=== PATIENT | female | born 1950 | race Caucasian/White ===

== ENCOUNTER → 2016-06-17 07:56 | Day surgery (SDC) | payer MEDICARE ==
--- NOTE | 2016-06-10 03:51 | HP ---
HISTORY AND PHYSICAL: DATE OF ADMISSION AND SURGERY: 06/17/16 DATE OF VISIT: 06/07/16 CHIEF COMPLAINT: Blurry vision. HISTORY OF PRESENT ILLNESS: This 66-year-old white female has seen Dr. Rupesh Zuleta and has been diagnosed with bilateral cataracts. She is scheduled at the [facility] for right cataract extraction under local anesthesia with monitored anesthesia care on 06/17/16. The left eye will be done on 07/01/16. PAST MEDICAL HISTORY: The patient is under the care of Dr. Samuel Forbes and Dr. Jesse Delacruz, her cook chief. She has a history of : 1. Hypertension. 2. Bradycardia with pacemaker. 3. Atrial fibrillation. She is on Coumadin. 4. Hiatal hernia with Caldwell's esophagus. 5. She has sleep apnea, on CPAP. 6. Vitamin B12 deficiency. The patient has been experiencing anginal chest pain during the past several weeks. Nitroglycerin is helpful. She saw Dr. Delacruz today in followup and he stated that she does not need any further cardiac testing at this time as she is on adequate dose of metoprolol and amlodipine and he will be seeing her in a month. He thought she was a good candidate for the cataract surgery that was a low risk procedure. She did have a negative Myoview stress test dating back to May 2014, which showed an ejection fraction of 67%. PAST SURGICAL HISTORY: Include: 1. Appendectomy. 2. Hysterectomy. 3. Bilateral tubes and ovaries. 4. She had a cardiac stent placed in 2001. 5. In 2004, she had a coronary artery bypass graft, complication of a sternal infection and the wires were removed from her coronary artery bypass from the chest wall in 2005. CURRENT MEDICATIONS: 1. Amlodipine 10 mg daily. 2. Lisinopril 20 mg b.i.d. 3. Metoprolol ER 100 mg daily. 4. Lipitor 80 mg daily. 5. Clonidine 0.2 mg tablet q.h.s. 6. Prevacid 30 mg daily p.r.n. 7. Albuterol inhaler 2 puffs q.i.d. p.r.n. 8. Hydrochlorothiazide 12.5 mg daily. 9. Vitamin B12 1000 mcg daily. 10. Nitroglycerin 0.4 mg sublingual p.r.n. chest pain, which she has used once in the past 2 weeks. 11. She is also on Coumadin 5 mg as directed. The patient was advised to hold her Coumadin doses 3 days prior to surgery as well as her surgery day. She can restart after her surgery. She was given dates for both of her surgical procedures in terms of holding her Coumadin. ALLERGIES: SULFA and VANCOMYCIN have caused hives. FAMILY HISTORY: Mother - [place] at age 36, diabetes, glaucoma, of kidney failure in her 60s related to diabetes complications. Maternal grandmother - diabetic. Maternal uncle - MIs in his 40s. Maternal aunt - cardiac arrest age 50. Father had dementia and lived to . SOCIAL HISTORY: She is single. She has never used tobacco. Rare to occasional alcohol. REVIEW OF SYSTEMS: She has a bit of a clear runny nose past few days, nonproductive, minor cough. 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 Otherwise, review of systems is negative to detailed questioning. No shortness of breath, palpitations or edema symptoms. She does have chest pain complaints as previously stated. PHYSICAL EXAMINATION GENERAL: This 66-year-old white female is alert, pleasant, and cooperative. VITAL SIGNS: Height 5 feet 3 inches, weight 221 pounds, blood pressure 136/60, pulse 62. HEENT: Eyes: Not examined. Mouth: Tongue in the midline. Pharynx is clear. She has an upper denture full in place. No molars on the bottom jaw. Ears: Normal. NECK: No adenopathy or tenderness. Thyroid benign. BACK: Mild kyphosis. No tenderness noted of the spine or CVA areas. LUNGS: Clear. HEART: Rhythm is regular. Apical pulse 62 beats per minute. She has a widened sternal scar from previous surgery. Pacemaker in her left upper chest. SKIN: Warm, dry. No worrisome lesions noted. ABDOMEN: Obese. Multiple well-healed scars. No evidence of hernia. Active bowel sounds, soft, nontender. No obvious masses or organomegaly. EXTREMITIES: The patient ambulates independently. No assisting aids. No gross deformities, no cyanosis, no edema. IMPRESSION: The patient is medically stable and cleared for her upcoming surgery. As previously stated, Dr. Delacruz saw her today and agrees that she can proceed with her cataract surgery. MISHEL DUARTE NP CC: Dr. Forbes; [facility] Rupesh Zuleta; [facility] * [id number]/[facility] #: [id number] [facility] SYSTEMChula
[~2016-06-17 07:56] MED LIST: Acetaminophen TAB* 325 MG PO PRN; Buffered Lidocaine 1% SYR 3ML* 3 ML/SYR SYRINGE INTRADERM ONE; Cyclopentolate 1% OPTH.SOL* 2 ML BTL ONE; Flurbiprofen 0.03% OPTH.SOL* 2.5 ML BTL ONE; Lidocaine 1% MPF* 2 ML VIAL ONE; Midazolam* 1 MG/ML 2 ML VIAL (2 MG) ONE; Neomycin/Polymy/Dex OPHTH.OIN* 3.5 GM ONE; Phenylephrine 2.5% OPTH.SOL* 2 ML BTL ONE; Povidone Iodine 5% OPTH* 30 ML BTL ONE; Tetracaine 0.5% OPTH.SOL 4 ML* 1 DROP BTL ONE; acetaZOLAMIDE TAB* 250 MG ONE
[2016-06-17 10:03] VITALS: BP 160/79
--- NOTE | 2016-06-18 01:34 | OP ---
DATE OF OPERATION: 06/17/16 - [place] [facility] DATE OF : 46 SURGEON: Rupesh Zuleta MD ANESTHESIOLOGIST: Ariel Owens MD ANESTHESIA: Monitored anesthesia care. PRE-OP DIAGNOSIS: Cataract of the right eye. POST-OP DIAGNOSIS: Cataract of the right eye. OPERATIVE PROCEDURE: Cataract extraction of the right eye. IMPLANTS: SN60WF 21.0 diopter lens to the right eye. COMPLICATIONS: None. DESCRIPTION OF PROCEDURE: The patient was given phenylephrine 2.5% and cyclopentolate 1% eyedrops to the operative eye in the preoperative area. The patient was brought to the operating room where a time-out was taken to identify the correct patient, site, and side of surgery. The patient's right eye was prepped and draped in the usual sterile fashion with 5% Betadine. A second time- out was taken to verify the correct patient, site, and side of surgery, and correct lens selection. A lid speculum was placed to the right eye. A 1-mm paracentesis blade was used to make a clear corneal incision in the superotemporal position. Preservative-free 1% lidocaine was injected into the anterior chamber. DuoVisc was then injected into the anterior chamber. A 2.75-mm keratome blade was used to make a triplanar incision at the inferotemporal position. A cystotome was used to initiate a capsulorrhexis, which was completed with Utrata forceps in a continuous and curvilinear manner. Hydrodissection of the lens was then performed with BSS on a cannula. The lens could be spun in the capsular bag. The phacoemulsification handpiece was then used with a maaior-apj-izypavz technique to remove the nucleus in its entirety with 16.03 CDE. The I/A handpiece was then used to remove the residual cortical lens material. DuoVisc was then injected to inflate the capsular bag. The planned SN60WF 21.0 diopter lens was then injected into the capsular bag. The residual DuoVisc was then removed from the eye with the I/A handpiece. The corneal incisions were then hydrated and no leaks occurred at physiologic pressure around 20 mmHg per palpation. The lid speculum was then removed and drapes removed. Maxitrol ointment was then placed to the surface of the operative eye. An adhesive patch and shield were then placed on the operative eye. The patient was taken to the postoperative area in stable condition. [id number]/[facility] #: [id number] ANGELA
== END | disposition home or self-care (01) ==
LOC: OREAST 07:56
PROVIDERS: ATTEND Student in an Organized Health Care Education/Training Program
DX: H25.11 Age-related nuclear cataract, right eye (principal); I49.5 Sick sinus syndrome; I25.9 Chronic ischemic heart disease, unspecified; I25.810 Atherosclerosis of coronary artery bypass graft(s) without angina pectoris; I10 Essential (primary) hypertension; I25.2 Old myocardial infarction; Z95.5 Presence of coronary angioplasty implant and graft; Z79.01 Long term (current) use of anticoagulants; Z95.0 Presence of cardiac pacemaker; J44.9 Chronic obstructive pulmonary disease, unspecified; Z95.1 Presence of aortocoronary bypass graft
CPT/HCPCS: A9270-GY; J2250; V2632

== ENCOUNTER → 2016-07-01 10:54 | Day surgery (SDC) | payer MEDICARE ==
[~2016-07-01 10:54] MED LIST changes: -Buffered Lidocaine 1% SYR 3ML* 3 ML/SYR SYRINGE INTRADERM ONE; +Buffered Lidocaine 1% SYRIN* 3 ML/SYR SYRINGE INTRADERM ONE; +fentaNYL* 50 MCG/ML 2 ML VIAL (100 MCG VIAL) ONE
[2016-07-01 13:15] VITALS: BP 147/72
--- NOTE | 2016-07-02 06:32 | OP ---
DATE OF OPERATION: 07/01/16 - [place] [facility] DATE OF : 46 SURGEON: Rupesh Zuleta MD ANESTHESIOLOGIST: Vasu Lucero MD ANESTHESIA: Monitored anesthesia care. PRE-OP DIAGNOSIS: Cataract to the left eye. POST-OP DIAGNOSIS: Cataract to the left eye. OPERATIVE PROCEDURE: Cataract extraction of the left eye. IMPLANTS: SN60WF 21.0 diopter lens to the left eye. COMPLICATIONS: None. DESCRIPTION OF PROCEDURE: The patient was given phenylephrine 2.5% and cyclopentolate 1% eye drops to the operative eye in the preoperative area. The patient was brought to the operating room, where a time-out was taken to identify the correct patient, site, and side of surgery. The patient's left eye was prepped and draped in the usual sterile fashion with 5% Betadine. A second time-out was taken to verify the correct patient, site, and side of surgery, and correct lens selection. A lid speculum was placed to the left eye. An 1-mm paracentesis blade was used to make a clear corneal incision in the inferotemporal position. Preservative-free 1% lidocaine was injected into the anterior chamber. DuoVisc was then injected into the anterior chamber. A 2.75 mm keratome blade was used to make a triplanar incision at the superotemporal position. A cystotome was used to initiate a capsulorrhexis, which was completed with Utrata forceps in a continuous and curvilinear manner. Hydrodissection of the lens was then performed with BSS on a cannula. The lens could be spun in the capsular bag. The phacoemulsification handpiece was then used with a hgconh-wph-[id number] technique to remove the nucleus in its entirety with 13.21 CDE. The I/A handpiece was then used to remove the residual cortical lens material. DuoVisc was then injected to inflate the capsular bag. The planned SN60WF 21.0 diopter lens was then injected into the capsular bag. The residual DuoVisc was then removed from the eye with the I/A handpiece. The corneal incisions were then hydrated and no leaks occurred at the physiologic pressure around 20 mmHg per palpation. The lid speculum was then removed and drapes were removed. Maxitrol ointment was then placed to the surface of the operative eye. An adhesive patch and shield were then placed on the operative eye. The patient was taken to the post-operative area in stable condition. [id number]/[facility] #: [id number] ANGELA
== END | disposition home or self-care (01) ==
LOC: OREAST 10:54
PROVIDERS: ATTEND Student in an Organized Health Care Education/Training Program
DX: H25.12 Age-related nuclear cataract, left eye (principal); I25.10 Atherosclerotic heart disease of native coronary artery without angina pectoris; Z79.01 Long term (current) use of anticoagulants; I48.91 Unspecified atrial fibrillation; Z95.5 Presence of coronary angioplasty implant and graft; Z95.1 Presence of aortocoronary bypass graft; Z95.0 Presence of cardiac pacemaker
CPT/HCPCS: J2250; J3010; V2632

== ENCOUNTER 2017-06-10 09:01 | Emergency (ER) | payer MEDICARE ==
[2017-06-10 09:37] LABS: ABS Basophils 0.1 10^3/ul (0-0.2); ABS Eosinophils 0.1 10^3/ul (0-0.6); ABS Lymphocytes 1.7 10^3/ul (1.0-4.8); ABS Monocytes 0.7 10^3/ul (0-0.8); ABS Neutrophils 5.5 10^3/ul (1.5-7.7); ABS Nucleated RBC 0 10^3/ul; Eosinophil % 1.3 % (0-6); Hematocrit 46 % (35-47); Hemoglobin 15.7 g/dl (12.0-16.0); Lymphocyte % 21.1 % (25-47); Mean Corpuscular HGB Conc 34 g/dl (31-36); Mean Corpuscular Hemoglobin 32 pg (27-31); Mean Corpuscular Volume 93 fL (80-97); Mean Platelet Volume 8 um3 (7.4-10.4); Nucleated Red Blood Cells % 0; Platelet Count 220 10^3/ul (150-450); Red Blood Count 4.91 10^6/ul (4.0-5.4); Red Cell Distribution Width 15 % (10.5-15); White Blood Count 8.1 10^3/ul (3.5-10.8)
--- OUTSIDE RECORDS SUMMARY | 2017-06-10 09:41 | XMS REPORT ---
:1950 External Reference #:[id number] Author Organization [facility] Address [address] [place] [address] Phone [phone] Care Team Providers Name Role Phone Mendel Morris MD Care Team Information Coal Pulverizer Operator Unavailable Mendel Morris MD Primary Care Physician Unavailable Payers Type Date Identification Numbers Payment Provider Subscriber Medicare Primary Effective: Policy Number: Medicare - Bswny Maryann Dawson 2016 [id number] [facility] PayID: [id number] [address] [place] [id number] [place] [address] Part B Effective: Policy Number: [employer] Medicare Maryann Souza 2016 [id number] Supplement Samir Group Name: Aarp Medicare Supplement [facility] Care Options PayID: [id number] 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 Cigarette Use Never Smoked Cigarettes ETOH Use Occasionally consumes alcohol 4/wk Exercise Type/Frequency Exercises rarely Walks 3/wk Allergies, Adverse Reactions, Alerts Date Description Reaction Status Severity Comments 08/29/2016 Vancomycin active rash/welts 08/29/2016 Sulfa active rash 08/29/2016 Norvasc active swelling & coughing 08/29/2016 Vasotec active swelling & coughing Medications Medication Date Status Form Strength Qnty SIG Indications Ordering Provider Hydrochlorothiazid 12/20 Active Tablets 25mg 30tab 1 tab by Mendel gatica s mouth every Alexandra castaneda MD Lipitor 08/29 Active Tablets 80mg 30tab take one I10 Mendel s tablet by Alexandra mouth every , MD day as directed Lisinopril 08/29 Active Tablets 20mg 60tab 2 tab by I10 Mendel s mouth every Alexandra castaneda MD Atorvastatin Active Tablets 80mg 1 by mouth Unknown Calcium /0000 every day Metoprolol Active Tablets 100mg 30tab 1 by mouth Mendel Succinate ER /0000 ER 24HR s every day MD Alexandra Amlodipine Active Tablets 10mg 30tab 1 by mouth Mendel Besylate /0000 s every day MD Alexandra [facility] Lansoprazole Active Capsules 15mg 1 by mouth Unknown /0000 DR every day as needed Warfarin Sodium Active Tablets 5mg 1 tablet Unknown /0000 (5mg) every other day. Alternate with two tablet (10mg) Albuterol HFA Active 90mcg/Inh 2 puffs Unknown /0000 every 4 hours as needed Nitroglycerin Active Tablets 0.4mg 1 Unknown /0000 Sub sublingual at onset of chest pain as directed, lie down when taking-may repeat 1 in 5 minutes as needed- and call 911 Vitamin B12 Active Tablets 1000mcg 1 by mouth Unknown /0000 ER every day- sublingual- for vitamin b12 deficiency Torsemide 12/20 Hx Tablets 20mg 90tab take three Mendel s tablets by Alexandra - mouth MD reymundo Lisinopril Hx Tablets 20mg 1 by mouth Unknown /0000 twice daily - 05/22 Hydrochlorothiazid Hx Tablets 12.5mg 30tab 1 by mouth Mendel e /0000 s every day Alexandra Witt MD 12/20 Furosemide Hx Tablets 20mg 1/2 tab by Unknown /0000 mouth every - day as 12/20 Immunizations CPT Code Status Date Vaccine Lot # [id number] Given 12/20/2016 Prevnar-13 Pneumococcal Conjugate Vaccine [id number] 05133 Given 12/20/2016 Influenza Vaccine High Dose PF [id number] 40243 Given 12/14/2015 Influenza Virus Vaccine, Quadrivalent, 3 Yr > Quad, Preserv Free 71112 Given 2012 Tdap (Adacel) 61062 Given 01/30/2009 Pneumovax 23 (PPSV23) 65+ years or high risk 2 to 64 year old 35531 Refused 12/20/2016 Zoster Vaccine Vital Signs Date Vital Result Comment 05/28/2017 BP Systolic 130 mmHg BP Diastolic 92 mmHg Heart Rate 60 /min Body Temperature 96.8 F O2 % BldC Oximetry 98 % 05/22/2017 Weight 224.00 lb Weight in kg's 101.606 BP Systolic 152 mmHg BP Diastolic 80 mmHg Heart Rate 68 /min Body Temperature 97.0 F O2 % BldC Oximetry 97 % 12/20/2016 Weight 215.00 lb Weight in kg's 97.524 BP Systolic 148 mmHg BP Diastolic 80 mmHg Heart Rate 64 /min Body Temperature 97.0 F Respiratory Rate 14 /min Height 62 inches 5'2" BMI (Body Mass Index) 39.3 kg/m2 08/29/2016 Weight 219.00 lb Weight in kg's 99.338 BP Systolic 158 mmHg BP Diastolic 92 mmHg Heart Rate 66 /min Body Temperature 97.4 F Respiratory Rate 16 /min Height 61.5 inches 5'1.50" BMI (Body Mass Index) 40.7 kg/m2 O2 % BldC Oximetry 97 % Results Test Date Test Result H/L Range Note Inr/Protime 05/19/2017 Inr 2.47 High 0.77-1.02 Inr/Protime 04/17/2017 Inr 2.47 High 0.77-1.02 Inr/Protime 03/14/2017 Inr 2.67 High 0.77-1.02 1 Inr/Protime 02/12/2017 Inr 2.13 High 0.89-1.11 Inr/Protime 01/13/2017 Inr 2.63 High 0.89-1.11 Lipid Profile (Trig/Chol/HDL) 12/20/2016 Triglycerides 95 mg/dL 2 Cholesterol 162 mg/dL 3 HDL Cholesterol 47.9 mg/dL 4 LDL Cholesterol 95 mg/dL 5 CBC Auto Diff 12/20/2016 White Blood Count 5.7 10^3/uL 3.5-10.8 Red Blood Count 4.82 10^6/uL 4.0-5.4 Hemoglobin 15.6 g/dL 12.0-16.0 Hematocrit 45 % 35-47 Mean Corpuscular Volume 94 fL 80-97 Mean Corpuscular Hemoglobin 32 pg High 27-31 Mean Corpuscular HGB Conc 35 g/dL 31-36 Red Cell Distribution Width 15 % 10.5-15 Platelet Count 189 10^3/uL 150-450 Mean Platelet Volume 8 um3 7.4-10.4 Abs Neutrophils 3.9 10^3/uL 1.5-7.7 Abs Lymphocytes 1.2 10^3/uL 1.0-4.8 Abs Monocytes 0.5 10^3/uL 0-0.8 Abs Eosinophils 0.1 10^3/uL 0-0.6 Abs Basophils 0 10^3/uL 0-0.2 Abs Nucleated RBC 0 10^3/uL Granulocyte % 68.2 % 38-83 Lymphocyte % 21.0 % Low 25-47 Monocyte % 8.9 % 1-9 Eosinophil % 1.4 % 0-6 Basophil % 0.5 % 0-2 Nucleated Red Blood Cells % 0.1 Comp Metabolic Panel 12/20/2016 Sodium 142 mmol/L 133-145 Potassium 4.5 mmol/L 3.5-5.0 Chloride 108 mmol/L 101-111 Co2 Carbon Dioxide 27 mmol/L 22-32 Anion Gap 7 mmol/L 2-11 Glucose 99 mg/dL 70-100 Blood Urea Nitrogen 33 mg/dL High 6-24 Creatinine 0.79 mg/dL 0.51-0.95 BUN/Creatinine Ratio 41.8 High 8-20 Calcium 9.1 mg/dL 8.6-10.3 Total Protein 6.5 g/dL 6.4-8.9 Albumin 3.8 g/dL 3.2-5.2 Globulin 2.7 g/dL 2-4 Albumin/Globulin Ratio 1.4 1-3 Total Bilirubin 1.30 mg/dL High 0.2-1.0 Alkaline Phosphatase 49 U/L 34-104 Alt 20 U/L 7-52 Ast 17 U/L 13-39 Egfr Non- 72.4 >60 Egfr 93.1 >60 6 Laboratory test finding 12/20/2016 C Reactive Protein 1.96 mg/L < 5.00 7 Inr/Protime 12/12/2016 Inr 2.43 High 0.89-1.11 Inr/Protime 11/14/2016 Inr 2.68 High 0.89-1.11 Inr/Protime 10/17/2016 Inr 2.57 High 0.89-1.11 Inr/Protime 09/25/2016 Inr 2.40 High 0.89-1.11 Inr/Protime 09/12/2016 Inr 2.21 High 0.89-1.11 Inr/Protime 09/05/2016 Inr 2.66 High 0.89-1.11 Inr/Protime 08/29/2016 Inr 4.43 High 0.89-1.11 CBC Auto Diff 08/29/2016 White Blood Count 6.3 10^3/uL 3.5-10.8 Red Blood Count 5.24 10^6/uL 4.0-5.4 Hemoglobin 16.4 g/dL High 12.0-16.0 Hematocrit 49 % High 35-47 Mean Corpuscular Volume 94 fL 80-97 Mean Corpuscular Hemoglobin 31 pg 27-31 Mean Corpuscular HGB Conc 33 g/dL 31-36 Red Cell Distribution Width 14 % 10.5-15 Platelet Count 177 10^3/uL 150-450 Mean Platelet Volume 9 um3 7.4-10.4 Abs Neutrophils 4.2 10^3/uL 1.5-7.7 Abs Lymphocytes 1.5 10^3/uL 1.0-4.8 Abs Monocytes 0.5 10^3/uL 0-0.8 Abs Eosinophils 0.1 10^3/uL 0-0.6 Abs Basophils 0 10^3/uL 0-0.2 Abs Nucleated RBC 0.01 10^3/uL Granulocyte % 67.2 % 38-83 Lymphocyte % 23.4 % Low 25-47 Monocyte % 7.6 % 1-9 Eosinophil % 1.3 % 0-6 Basophil % 0.5 % 0-2 Nucleated Red Blood Cells % 0.2 Comp Metabolic Panel 08/29/2016 Sodium 138 mmol/L 133-145 Potassium 5.0 mmol/L 3.5-5.0 Chloride 104 mmol/L 101-111 Co2 Carbon Dioxide 26 mmol/L 22-32 Anion Gap 8 mmol/L 2-11 Glucose 106 mg/dL High 70-100 Blood Urea Nitrogen 29 mg/dL High 6-24 Creatinine 0.94 mg/dL 0.51-0.95 BUN/Creatinine Ratio 30.9 High 8-20 Calcium 9.5 mg/dL 8.6-10.3 Total Protein 6.6 g/dL 6.4-8.9 Albumin 4.0 g/dL 3.2-5.2 Globulin 2.6 g/dL 2-4 Albumin/Globulin Ratio 1.5 1-3 Total Bilirubin 1.30 mg/dL High 0.2-1.0 Alkaline Phosphatase 52 U/L 34-104 Alt 19 U/L 7-52 Ast 18 U/L 13-39 Egfr Non- 59.2 >60 Egfr 76.2 >60 8 1 Please note the change in INR reference range effective 17. 2 Desirable <150 Borderline high 150-199 High 200-499 Very High >500 3 Desirable <200 Borderline high 200-239 High >239 4 Low <40 Desirable: 40-60 High: >60 5 Desirable: <100 mg/dL Near Optimal: 100-129 mg/dL Borderline High: 130-159 mg/dL High: 160-189 mg/dL Very High: >189 mg/dL 6 Because ethnic data is not always readily available, this report includes an eGFR for both -Americans and non- Americans. The National Kidney Disease Education Program (NKDEP) does not endorse the use of the MDRD equation for patients that are not between the ages of 18 and 70, are , have extremes of body size, muscle mass, or nutritional status, or are non- or non-. According to the National Kidney Foundation, irrespective of diagnosis, the stage of the disease is based on the level of kidney function: Stage Description GFR(mL/min/1.73 m(2)) 1 Kidney damage with normal or decreased GFR 90 2 Kidney damage with mild decrease in GFR 60-89 3 Moderate decrease in GFR 30-59 4 Severe decrease in GFR 15-29 5 Kidney failure <15 (or dialysis) 7 Acute inflammation: >10.00 8 Because ethnic data is not always readily available, this report includes an eGFR for both -Americans and non- Americans. The National Kidney Disease Education Program (NKDEP) does not endorse the use of the MDRD equation for patients that are not between the ages of 18 and 70, are , have extremes of body size, muscle mass, or nutritional status, or are non- or non-. According to the National Kidney Foundation, irrespective of diagnosis, the stage of the disease is based on the level of kidney function: Stage Description GFR(mL/min/1.73 m(2)) 1 Kidney damage with normal or decreased GFR 90 2 Kidney damage with mild decrease in GFR 60-89 3 Moderate decrease in GFR 30-59 4 Severe decrease in GFR 15-29 5 Kidney failure <15 (or dialysis) Procedures Date CPT Code Description Status 06/29/2016 Colonoscopy Completed 06/29/2016 Mammogram Completed Encounters Type Date Location Provider CPT E/M Dx Office Visit 12/20/2016 8:00a Main Office Mendel Morris MD [id number] Z00.8 I48.91 I10 N39.3 R63.4 M54.32 Z23 Office Visit 08/29/2016 9:15a [place] [address] I48.91 I10 K21.9 Plan of Care Future Appointment(s):06/16/2017 9:00 am - Lab and Office Services at Main Bvwtfv8306/19/2017 9:00 am - Mendel Morris MD at Main Hhgprj2705/28/2017 - Mendel Morris MDM25.561 Pain in right kneeComments:Steroid injection of the knee.Patient tolerated it well except for some pain during the injection itself. I think the bone spurs might have made it more technically difficult. Afterward she did report relief.
--- OUTSIDE RECORDS SUMMARY | 2017-06-10 09:41 | XMS REPORT ---
:1950 External Reference #:[id number] Author Organization [facility] Address [address] [place] [address] Phone [phone] Care Team Providers Name Role Phone Mendel Morris MD Care Team Information Bombsight Specialist Unavailable Mendel Morris MD Primary Care Physician Unavailable Payers Type Date Identification Numbers Payment Provider Subscriber Medicare Primary Effective: Policy Number: Medicare - Bswny Maryann Dawson 2016 [id number] [facility] PayID: [id number] [address] [place] [id number] [place] [address] Part B Effective: Policy Number: Aarp Medicare Maryann Souza 2016 [id number] Supplement Samir Group Name: Aarp Medicare Supplement [facility] Health Care Options PayID: [id number] 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 Cigarette Use Never Smoked [...] CPT Code Status Date Vaccine Lot # [id number] Given 12/20/2016 Prevnar-13 Pneumococcal Conjugate Vaccine [id number] 57380 Given 12/20/2016 Influenza Vaccine High Dose PF [id number] 11548 Given 12/14/2015 Influenza Virus Vaccine, Quadrivalent, 3 Yr > Quad, Preserv Free 24997 Given 2012 Tdap (Adacel) 04607 Given 01/30/2009 Pneumovax 23 (PPSV23) 65+ years or high risk 2 to 64 year old 06587 Refused 12/20/2016 Zoster Vaccine Vital Signs Date Vital Result Comment 05/22/2017 Weight 224.00 lb Weight in kg's [...] 08/29/2016 9:15a [place] [address] I48.91 I10 K21.9 Plan of Care Future Appointment(s):06/16/2017 9:00 am - Lab and Office Services at Main Xeaupo8106/19/2017 9:00 am - Mendel Morris MD at Main Omsqyo3805/22/2017 - Mendel Morris MDM25.561 Pain in right kneeNew Xrays:Knee Xray, Complete, 4 Or More ViewsComments:Her severe cramp seems to have caused some injury to one of her biceps femoris tendon.in addition I think her previous knee arthritis is reactivating.She did well years ago with a knee injection.If a repeat x-ray now shows nothing besides continued arthritis, I think we should be fine to inject her again.Depending on the x-ray results, she may make an appointment for this.Follow up:x-raysRecommendations:-Tylenol -FniepjqjwG22 CoughNew Xrays:Chest , 2 Views(PA & Lateral)Comments:Her cough is becoming chronic. She deserves an x-ray.Bibasilar crackles sound fluidlike to my exam. She has no other signs of heart failure. No symptoms either. The x-ray will help make this clear.
--- NOTE | 2017-06-10 09:47 | RAD ---
INDICATION: Dizziness. Short of breath COMPARISON: May 22, 2017 TECHNIQUE: An AP portable view obtained at 0933 hours is submitted. FINDINGS: Bones/Soft Tissues: There are no acute bony findings. There is CABG. There is a left-sided cardiac pacemaker Cardiomediastinal: The cardiomediastinal silhouette is normal. Lungs: There are no infiltrates. Pleura: There are no pleural effusions. Other: None IMPRESSION: POSTOPERATIVE CHANGE. NO ACTIVE DISEASE.
[2017-06-10] MEDS ORDERED: Labetalol IV* 5 MG/ML 20 ML VIAL IV PUSH ONE (10:13)
[2017-06-10 11:12] LABS: INR 3.65 (0.77-1.02)
[2017-06-10] MEDS ORDERED: Metoprolol Tartrate IV* 1 MG/ML 5 ML VIAL ONE (11:32)
[2017-06-10] MEDS ORDERED: Metoprolol Tartrate IV* 1 MG/ML 5 ML VIAL IV ONE (11:35)
[2017-06-10] MEDS ORDERED: fentaNYL* 50 MCG/ML 2 ML VIAL (100 MCG VIAL) ONE (11:40)
[2017-06-10] MEDS ORDERED: Midazolam* 1 MG/ML 5 ML VIAL (5 MG) ONE (11:40)
[2017-06-10] MEDS ORDERED: Naloxone* 0.4 MG/ML 1 ML VIAL ONE (12:03)
[2017-06-10] MEDS ORDERED: Flumazenil* 0.1 MG/ML 5 ML MDV ONE (12:03)
[2017-06-10 13:49] VITALS: BP 146/78
--- NOTE | 2017-06-10 22:05 | CONS ---
CC: Dr. Fragoso* EMERGENCY ROOM CONSULTATION: DATE OF CONSULT: 06/10/17 INDICATION FOR CONSULTATION: Atrial fibrillation. HISTORY OF PRESENT ILLNESS: The patient is a 67-year-old female with a history of coronary artery disease, history of sick sinus syndrome, status post pacemaker implantation who comes to the emergency room. The patient is well known to me regarding her cardiac status. The patient states that she noticed the onset of palpitations and shortness of breath approximately 3 days ago. She was hoping that it would just resolve on its own. However today, she woke up and felt quite poorly. She was short of breath. She said her heart was racing over 100 beats a minute and decided to come to the emergency room. On arrival to the emergency room, she was in atrial fibrillation with a heart rate of 120. Her blood pressure was stable. The patient denied any anginal-type symptoms. She denied any lightheadedness, dizziness, or syncope. The patient does state that she has been progressively short of breath over the last 3 days. She does not know of any triggers. She has been following her diet. She has been on her usual medications. Of note, her pacemaker was interrogated last month and noted to be functioning normally. However, she was having slightly increased episodes of atrial fibrillation. She did have 1 episode of atrial fibrillation. It was 16 hours in duration. PAST MEDICAL HISTORY: Significant for paroxysmal atrial fibrillation, history of coronary artery disease, history of coronary artery bypass surgery, history of pacemaker implantation for sick sinus syndrome. PAST SURGICAL HISTORY: Hysterectomy, pacemaker implantation, coronary artery bypass surgery. OUTPATIENT MEDICATIONS: 1. Lisinopril 20 mg 2 times a day. 2. Coumadin as directed. 3. Hydrochlorothiazide 12.5 mg a day. 4. Lipitor 80 mg a day. 5. Metoprolol succinate 100 mg a day. 6. Amlodipine 10 mg a day. 7. Lasix 20 mg a day. 8. Nitroglycerin as needed. 9. Prevacid 15 mg every other day. 10. Multivitamin a day. ALLERGIES: VANCOMYCIN, SULFA MEDICATIONS. FAMILY HISTORY: Significant for heart disease and diabetes. SOCIAL HISTORY: She lives alone. She is a retired nurse. She denies tobacco or alcohol use. She tries to walk on a daily basis. PHYSICAL EXAMINATION: Height is 5 feet 3 inches, weight 225 pounds. Temperature 97.4, heart rate is 100, blood pressure 170/118, respiratory rate is 14, oxygen saturation 98% on 2 L. Sclerae anicteric. Oropharynx is pink without erythema. Carotids are 2+ without bruits. JVD is normal. Thyroid is normal. Cardiac Exam: S1, S2 without any murmurs, rubs, or gallops. PMI is normal. Lungs have minimal rales at the bases. There is no dullness to percussion. Upper lung young are clear. Abdomen is soft, nontender, nondistended with normoactive bowel sounds. Extremities show no edema. She has 2+ pulses throughout. The patient is awake, alert, and oriented. She moves all 4 extremities equally. LABORATORY DATA/DIAGNOSTIC STUDIES: CBC within normal limits. Chemistry is within normal limits. BUN 36, creatinine 1.05. AST and ALT are normal. Troponins are negative x2. INR today is 3.65. EKG demonstrates atrial fibrillation, otherwise unremarkable. IMPRESSION AND PLAN: This is a 67-year-old female with a history of coronary artery disease, history of sick sinus syndrome, history of pacemaker implantation who comes to the hospital because of atrial fibrillation. The patient thinks she has been in atrial fibrillation for 3 days. The patient's chest x-ray shows minimal CHF. Otherwise, her laboratory studies are unremarkable. For now, my recommendation is that the patient undergo cardioversion. The patient agrees to this. The patient will be cardioverted back to normal sinus rhythm. At this point, I do not think any medication changes are necessary. I will see the patient next week for a pacemaker check and an office visit. If the patient is having increasing episodes of atrial fibrillation, I will consider antiarrhythmic therapy. At some point, I would like to repeat her stress test given her history of coronary artery disease. [id number]/[facility] #: [id number] [facility]
--- NOTE | 2017-06-11 02:22 | CARD ---
CC: Dr. Fragoso* CARDIOVERSION NOTE: DATE OF PROCEDURE: 06/10/17 PROCEDURE: Cardioversion. INDICATION: Atrial fibrillation. HISTORY: The patient is well known to me from her past cardiac history. She has a history of coronary artery disease, history of pacemaker implantation, history of paroxysmal atrial fibrillation. The patient came to the emergency room because she had been in atrial fibrillation for 3 days and was feeling poorly. In the emergency room, her heart rate was 100 to 110. Her blood pressure was normal. Her laboratory studies were all normal. Her troponin levels were normal. Cardioversion was recommended. DESCRIPTION OF PROCEDURE: The patient was in a fasting state. Informed consent had been obtained prior to the procedure. All labs were reviewed. The patient is on Coumadin. Her INR today was 3.5. The patient was given 4 mg of Versed and 50 mcg of fentanyl for conscious sedation. The patient was cardioverted with 150 joules of synchronized biphasic energy. The patient converted to normal sinus rhythm. The patient tolerated the procedure well. No complications. I will see the patient in followup in 1 week for reevaluation of her pacemaker. [id number]/[facility] #: [id number] ANGELA
== END 2017-06-10 13:49 | disposition home or self-care (01) ==
LOC: ED 09:01
DX: I48.91 Unspecified atrial fibrillation (principal); I25.10 Atherosclerotic heart disease of native coronary artery without angina pectoris; Z79.01 Long term (current) use of anticoagulants; Z95.0 Presence of cardiac pacemaker; R42 Dizziness and giddiness
CPT/HCPCS: 36415; 71045; 80053; 83605; 84484; 85025; 85610; 92960; 93005; 96374; 96375; 99156; 99157; 99282; J2250; J2310; J3010; J3490

== ENCOUNTER → 2018-03-09 08:11 | Day surgery (SDC) | payer MEDICARE ==
[~2018-03-09 08:11] MED LIST changes: +Acetaminophen TAB* 325 MG ONE; -Buffered Lidocaine 1% SYRIN* 3 ML/SYR SYRINGE INTRADERM ONE; -Cyclopentolate 1% OPTH.SOL* 2 ML BTL ONE; +Diazepam TAB(*) 5 MG ONE; -Flurbiprofen 0.03% OPTH.SOL* 2.5 ML BTL ONE; +Heparin 2 UNITS/ML IVPREMIX* 3,000 ML IV ONE; +Iohexol 300 (CONTRAST) 10 ML SDV ONE; +Iohexol 350 (CONTRAST) 200 ML MDV IV ONE; +Lidocaine 1% INJ* 10 MG/ML 30 ML SDV ONE; -Lidocaine 1% MPF* 2 ML VIAL ONE; +Midazolam* 1 MG/ML 10 ML VIAL (10 MG) ONE; -Midazolam* 1 MG/ML 2 ML VIAL (2 MG) ONE; +NS 0.9% 1000 ML* 1,000 ML IV SCH; -Neomycin/Polymy/Dex OPHTH.OIN* 3.5 GM ONE; -Phenylephrine 2.5% OPTH.SOL* 2 ML BTL ONE; -Povidone Iodine 5% OPTH* 30 ML BTL ONE; -Tetracaine 0.5% OPTH.SOL 4 ML* 1 DROP BTL ONE; -acetaZOLAMIDE TAB* 250 MG ONE; +diPHENhydraMINE PO* 25 MG ONE
[2018-03-09 08:54] LABS: ABS Basophils 0 10^3/ul (0-0.2); ABS Eosinophils 0.1 10^3/ul (0-0.6); ABS Lymphocytes 1.2 10^3/ul (1.0-4.8); ABS Monocytes 0.7 10^3/ul (0-0.8); ABS Neutrophils 5.1 10^3/ul (1.5-7.7); ABS Nucleated RBC 0 10^3/ul; Eosinophil % 1.5 %; Hematocrit 47 % (35-47); Hemoglobin 15.9 g/dl (12.0-16.0); Lymphocyte % 17.2 %; Mean Corpuscular HGB Conc 34 g/dl (31-36); Mean Corpuscular Hemoglobin 32 pg (27-31); Mean Corpuscular Volume 94 fL (80-97); Mean Platelet Volume 8.1 fL (7.4-10.4); Nucleated Red Blood Cells % 0; Platelet Count 214 10^3/ul (150-450); Red Cell Distribution Width 14 % (10.5-15); White Blood Count 7.2 10^3/ul (3.5-10.8)
[2018-03-09 09:09] LABS: EGFR Non-African American 42.8 (>60)
[2018-03-09 09:16] LABS: INR 1.1 (0.77-1.02)
[2018-03-09 14:20] VITALS: BP 114/54
--- NOTE | 2018-03-09 23:54 | CATH ---
CC: Dr. Morris, [facility] * CARDIAC CATHETERIZATION: DATE OF PROCEDURE: 03/09/18 - [facility] CATH PROCEDURE: Cardiac catheterization including coronary angiography, saphenous vein graft angiography, and DAFNE angiography. INDICATION: Coronary artery disease, angina, abnormal stress test. HISTORY: The patient is a 68-year-old female with a history of coronary artery disease, history of coronary bypass surgery in 2005, who has been having crescendo angina since this past summer. The patient did have a stress test in this summer, which showed a moderate area of ischemia to her lateral wall. The patient has been tried on maximum medical therapy and control of her atrial fibrillation, despite that she continues to have anginal-type symptoms. Cardiac catheterization was recommended. DESCRIPTION OF PROCEDURE: The patient was brought to the cardiac catheterization lab in a fasting state. Informed consent had been obtained prior to the procedure. All labs have been reviewed. The patient was placed supine on the procedure table. Her femoral areas were prepped and draped in the usual fashion. 1% lidocaine was used for local anesthesia. The right femoral artery was entered by a modified Seldinger technique and a 6-Zambian sheath introducer was placed. The patient underwent coronary angiography using a 6- [place]ian JL4 catheter, a 6-Zambian AR1 catheter, and a 6-Zambian DAFNE catheter. At the end of the procedure, all sheaths and catheters were removed. The patient tolerated the procedure well with no complications. A total of 75 cc of Omnipaque dye was used, a total of 3.3 minutes of fluoro time was used. FINDINGS: 1. Left main: The left main was normal in size. It bifurcated into the LAD and circumflex. There was no evidence of stenosis. 2. Left anterior descending artery: The LAD was normal in size. It gave off 3 small diagonal branches. There was a mid 50% stenosis to the LAD. The remainder of the vessels was without disease. There was no evidence of competitive flow in the mid to distal LAD. 3. Left circumflex artery: The circumflex artery was occluded proximally. 4. Right coronary artery: The RCA was a large-dominant vessel. It had mild diffuse disease. The distal right coronary artery was occluded 100% before the PDA. 5. Saphenous vein graft to OM1 and PDA is open and patent. There is no evidence of stenosis. The anastomoses are normal. 6. DAFNE to the LAD. This is a very small atretic artery with a patent anastomosis to the LAD with which supplies very little territory. IMPRESSION: 1. Occluded left circumflex artery. 2. Occluded distal right coronary artery. 3. Saphenous vein graft to obtuse marginal 1 and posterior diagonal artery is open and patent. 4. Internal mammary artery to left anterior descending artery is a small atretic vessel, unchanged from 2007. 5. 50% stenosis to the mid left anterior descending artery. RECOMMENDATION: The patient will continue on maximum medical therapy and treatment of her paroxysmal atrial fibrillation for symptom relief. [id number]/[facility] #: [id number] [place]
== END | disposition home or self-care (01) ==
LOC: CHICATH 08:11
PROVIDERS: ATTEND Specialist
DX: I25.10 Atherosclerotic heart disease of native coronary artery without angina pectoris (principal); Z95.1 Presence of aortocoronary bypass graft; Z79.899 Other long term (current) drug therapy; Z79.82 Long term (current) use of aspirin; I25.82 Chronic total occlusion of coronary artery
CPT/HCPCS: 36415; 80048; 85025; 85610; 85730; 93455; 99156; A9270-GY; C1887; J1644; J2250; J3010; Q9967

== ENCOUNTER 2018-03-21 08:29 | Inpatient (IN) | payer MEDICARE ==
[2018-03-21 10:06] LABS: Hematocrit 46 % (35-47); Hemoglobin 15.8 g/dl (12.0-16.0); Mean Corpuscular HGB Conc 34 g/dl (31-36); Mean Corpuscular Hemoglobin 33 pg (27-31); Mean Corpuscular Volume 95 fL (80-97); Mean Platelet Volume 8.5 fL (7.4-10.4); Platelet Count 194 10^3/ul (150-450); Red Blood Count 4.84 10^6/ul (4.00-5.40); Red Cell Distribution Width 14 % (10.5-15); White Blood Count 6.8 10^3/ul (3.5-10.8)
[2018-03-21] MEDS: Dofetilide CAP* 500 MCG PO SCH ×2 (11:25→21:05)
[2018-03-21] MEDS: Saline FLUSH-PERIPHERAL* 10 ML SYRINGE PERIPH SCH ×3 (11:26→21:04)
[2018-03-21 16:31] LABS: BUN/Creatinine Ratio 41.9 (8-20); Calcium 8.8 mg/dL (8.6-10.3); EGFR Non-African American 59.6 (>60); Potassium 4.5 mmol/L (3.5-5.0)
[2018-03-21] MEDS ORDERED: Albuterol HFA INHALER* 8 gm MDI INH PRN (17:16)
[2018-03-21] MEDS ORDERED: Omeprazole CAP* 20 MG PO PRN (17:16)
[2018-03-21] MEDS ORDERED: Acetaminophen TAB* 325 MG PO PRN (17:21)
[2018-03-21] MEDS ORDERED: Al Hydrox/Mg Hydrox/Simet LIQ* 30 ML UDC PO PRN (17:22)
[2018-03-21] MEDS ORDERED: Zolpidem TAB* 5 MG PO PRN (17:22)
[2018-03-21] MEDS: Atorvastatin* 80 MG TAB PO SCH (21:05)
[2018-03-21] MEDS: Lisinopril TAB* 10 MG PO SCH (21:06)
[2018-03-22 05:32] LABS: INR 2.67 (0.77-1.02)
[2018-03-22 05:45] LABS: BUN/Creatinine Ratio 38.2 (8-20); Calcium 8.9 mg/dL (8.6-10.3); EGFR Non-African American 85.5 (>60); Potassium 4.3 mmol/L (3.5-5.0)
[2018-03-22] MEDS: amLODIPine TAB* 5 MG PO SCH (08:45)
[2018-03-22] MEDS: Lisinopril TAB* 10 MG PO SCH ×2 (08:45→21:00)
[2018-03-22] MEDS: Cyanocobalamin TAB* 500 MCG PO SCH (08:45)
[2018-03-22] MEDS: Dofetilide CAP* 500 MCG PO SCH (08:45)
[2018-03-22] MEDS: Metoprolol Succinate XL TAB* 100 MG PO SCH (08:46)
[2018-03-22] MEDS: Aspirin EC TAB* 81 MG TAB.EC PO SCH (08:46)
[2018-03-22] MEDS ORDERED: Hydrochlorothiazide TAB* 25 MG PO SCH (09:00)
[2018-03-22] MEDS: Saline FLUSH-PERIPHERAL* 10 ML SYRINGE PERIPH SCH ×2 (11:37→21:02)
[2018-03-22] MEDS ORDERED: Warfarin TAB(*) 10 MG PO ONE (17:00)
[2018-03-22] MEDS: Atorvastatin* 80 MG TAB PO SCH (21:00)
[2018-03-22] MEDS: Dofetilide CAP* 250 MCG PO SCH (21:01)
[2018-03-23] MEDS: Saline FLUSH-PERIPHERAL* 10 ML SYRINGE PERIPH SCH (03:28)
[2018-03-23 06:48] LABS: EGFR Non-African American 76.4 (>60); INR 2.26 (0.77-1.02); Magnesium 2.1 mg/dL (1.9-2.7); Potassium 4.4 mmol/L (3.5-5.0)
[2018-03-23 08:46] VITALS: BP 116/56
[2018-03-23] MEDS: amLODIPine TAB* 5 MG PO SCH (09:14)
[2018-03-23] MEDS: Aspirin EC TAB* 81 MG TAB.EC PO SCH (09:14)
[2018-03-23] MEDS: Cyanocobalamin TAB* 500 MCG PO SCH (09:14)
[2018-03-23] MEDS: Dofetilide CAP* 250 MCG PO SCH (09:14)
[2018-03-23] MEDS: Metoprolol Succinate XL TAB* 100 MG PO SCH (09:14)
[2018-03-23] MEDS: Lisinopril TAB* 10 MG PO SCH (09:14)
--- NOTE | 2018-03-23 14:33 | DS ---
CC: Dr. Delacruz; Dr. Morris DISCHARGE SUMMARY: DATE OF ADMISSION: 03/21/18 DATE OF DISCHARGE: 03/23/18 REASON FOR ADMISSION: Tikosyn initiation for paroxysmal atrial fibrillation. See Dr. Delacruz's admission note, 03/21/18. HOSPITAL COURSE: This is a 68-year-old woman with a history of coronary disease , coronary artery bypass grafting with dyspnea on exertion and episodes of atrial fibrillation. She had a cardioversion approximately 2-3 weeks ago but converted to atrial fibrillation within a couple days. She had a cardiac catheterization which revealed stable coronary disease, and it was decided to admit her for attempted rhythm control with Tikosyn. PAST MEDICAL HISTORY: Includes: 1. Gastroesophageal reflux. 2. Coronary artery disease. 3. Bradycardia. 4. History of MRSA infections in the past. 5 Paroxysmal AFib, tachy/rodolfo syndrome. PAST SURGICAL HISTORY: Includes hysterectomy; pacemaker 2001, 2003 and 2005; triple bypass. ALLERGIES: VANCOMYCIN, VASOTEC and SULFA antibiotics. HOSPITAL COURSE: She was admitted and initiated on Tikosyn following AFib. She initially had increase in her QTc to 495, so Tikosyn was decreased to 250 mcg b.i.d. She was converted to sinus rhythm yesterday and was converted to remain in sinus rhythm today with a QTc of 469. EKG on 03/21/18 at 9:35 revealed a baseline QT of 413 with heart rate 75 and QTc of 462. The patient feels well this morning and has had no chest pain, shortness of breath, syncope or near syncope. She has been ambulating about the ngo and feels well. PHYSICAL EXAMINATION: She is a well-developed, well-nourished female in no apparent distress. Heart rate 60, blood pressure 116/56, AFib mild, no significant JVD. Cardiac Exam: S1, S2 without murmurs, gallops, or rubs. Chest was clear. Extremities: Trace edema. LABORATORY TESTS: Labs include potassium of 4.4, BUN of 27, creatinine of 0.75 , magnesium of 2.1. CBC on 03/21/18 with white count of 6.8, hemoglobin of 15.8 , and platelet count of 194. DISCHARGE MEDICATIONS: Include: 1. Acetaminophen 650 q.6 p.r.n. 2. Maalox 30 q.6 p.r.n. 3. Albuterol 2 puffs q.4 p.r.n. 4. Amlodipine 10 mg daily. 5. Aspirin 81 mg a day. 6. Atorvastatin 80 mg a day. 7. Vitamin B12 1000 mcg p.o. daily. 8. Tikosyn 250 mcg p.o. b.i.d. 9. Lisinopril 20 mg b.i.d. 10. Metoprolol succinate 100 mg daily. 11. prilosec prn 12. Warfarin 5 mg daily and as directed. hctz discontinued. IMPRESSION: My impression is that Ms. Dawson has a history of coronary disease , paroxysmal atrial fibrillation, hypertension and now has tolerated a load of Tikosyn. I did discuss the risks and benefits of Tikosyn with her and the potential for drug interactions. I have asked her to check with her pharmacist and her physician before adding any [id number] or prescription medicines for the potential QT prolongation for arrhythmia. She was warned not to interrupt her therapy and that she would need to have a therapy reinstituted as an inpatient if she missed the dose. She is to be discharged with followup with Dr. Delacruz as an outpatient. TIME SPENT: Greater than 30 minutes was spent on discharge and coordinating care. [id number]/[facility] #: [id number] ANGELA
[2018-03-23] MEDS ORDERED: Warfarin TAB(*) 5 MG PO SCH (17:00)
== END 2018-03-23 12:00 | disposition home or self-care (01) | DRG 310 ==
LOC: MEDTELE 08:50
PROVIDERS: ADMIT Specialist; ATTEND Internal Medicine Cardiovascular Disease
DX: I48.0 Paroxysmal atrial fibrillation (principal); I25.119 Atherosclerotic heart disease of native coronary artery with unspecified angina pectoris; I25.9 Chronic ischemic heart disease, unspecified; K21.9 Gastro-esophageal reflux disease without esophagitis; I10 Essential (primary) hypertension; I08.1 Rheumatic disorders of both mitral and tricuspid valves; I45.81 Long QT syndrome; Z72.89 Other problems related to lifestyle; Z82.49 Family history of ischemic heart disease and other diseases of the circulatory system; Z86.14 Personal history of Methicillin resistant Staphylococcus aureus infection; Z95.1 Presence of aortocoronary bypass graft; Z95.0 Presence of cardiac pacemaker; Z83.3 Family history of diabetes mellitus; Z84.1 Family history of disorders of kidney and ureter; Z90.710 Acquired absence of both cervix and uterus; Z79.01 Long term (current) use of anticoagulants; Z79.82 Long term (current) use of aspirin
CPT/HCPCS: 36415; 80048; 83735; 83880; 85027; 85610; 93005; A9270-GY

== ENCOUNTER 2020-11-04 17:54 | Inpatient (IN) ==
[2020-11-04 18:20] LABS: ABS Basophils 0.1 10^3/ul (0-0.2); ABS Eosinophils 0.1 10^3/ul (0-0.6); ABS Lymphocytes 2.3 10^3/ul (1.0-4.8); ABS Monocytes 1.1 10^3/ul (0-0.8); Hematocrit 52 % (35-47); Hemoglobin 18.1 g/dL (12.0-16.0); Lymphocyte % 24.1 %; Mean Corpuscular HGB Conc 35 g/dL (31-36); Mean Corpuscular Hemoglobin 33 pg (27-31); Mean Corpuscular Volume 96 fL (80-97); Mean Platelet Volume 8.6 fL (7.4-10.4); Nucleated Red Blood Cells % 0.1; Platelet Count 209 10^3/uL (150-450); Red Blood Count 5.44 10^6 /uL (3.70-4.87); Red Cell Distribution Width 14 % (10-15); White Blood Count 9.5 10^3/uL (3.5-10.8)
[2020-11-04 18:32] LABS: INR 2.83 (0.86-1.15)
[2020-11-04 18:38] LABS: ALT 41 U/L (7-52); AST 29 U/L (13-39); Albumin 4.1 g/dL (3.2-5.2); Albumin/Globulin Ratio 1.2 (1-3); Alkaline Phosphatase 60 U/L (35-149); Anion Gap 10 mmol/L (2-11); Blood Urea Nitrogen 31 mg/dL (6-24); CO2 Carbon Dioxide 24 mmol/L (22-32); Calcium 9.2 mg/dL (8.6-10.3); Chloride 102 mmol/L (101-111); EGFR Non-African American 57.8 (>60); Globulin 3.4 g/dL (2-4); Glucose 89 mg/dL (70-100); Potassium 4.1 mmol/L (3.5-5.0); Sodium 136 mmol/L (135-145); Total Protein 7.5 g/dL (6.4-8.9)
[2020-11-04 18:52] LABS: Troponin I 0.04 ng/mL (<0.03)
[2020-11-04] MEDS ORDERED: Albuterol HFA INHALER 8 gm MDI INH PRN (20:17)
[2020-11-04 21:54] LABS: Troponin I 0.04 ng/mL (<0.03)
[2020-11-05 00:49] LABS: Troponin I 0.04 ng/mL (<0.03)
[2020-11-05] MEDS ORDERED: Aspirin EC 81 mg TAB.EC (enteric coated) PO SCH (09:00)
[2020-11-05 11:04] LABS: ABS Eosinophils 0.1 10^3/ul (0-0.6); ABS Lymphocytes 1.7 10^3/ul (1.0-4.8); ABS Monocytes 0.7 10^3/ul (0-0.8); ABS Neutrophils 4.8 10^3/ul (1.5-7.7); Eosinophil % 1.4 %; Hematocrit 49 % (35-47); Lymphocyte % 22.6 %; Mean Corpuscular HGB Conc 35 g/dL (31-36); Mean Corpuscular Hemoglobin 33 pg (27-31); Mean Corpuscular Volume 96 fL (80-97); Mean Platelet Volume 8.6 fL (7.4-10.4); Nucleated Red Blood Cells % 0.1; Platelet Count 191 10^3/uL (150-450); Red Blood Count 5.14 10^6 /uL (3.70-4.87); Red Cell Distribution Width 14 % (10-15); White Blood Count 7.4 10^3/uL (3.5-10.8)
[2020-11-05 11:10] LABS: INR 2.71 (0.86-1.15)
[2020-11-05 11:15] LABS: EGFR African American 87.8 (>60); EGFR Non-African American 72.6 (>60); Potassium 4.2 mmol/L (3.5-5.0)
[2020-11-05 13:26] VITALS: BP 143/70
== END 2020-11-05 14:35 | disposition home or self-care (01) | DRG 310 ==
LOC: ED 17:54 → MEDTELE 20:10
PROVIDERS: ADMIT Internal Medicine; ATTEND Student in an Organized Health Care Education/Training Program